=== PATIENT | male | born 1970 | race Caucasian/White ===

== ENCOUNTER 2023-04-27 10:48 | Inpatient (IN) | payer OTHER, SELFPAY ==
[2023-04-27] VITALS (41 sets, daily range): BP systolic 123–193; BP diastolic 67–98; PULSE 72–104; RESP 16–18; TEMP 36.2–36.5; O2SAT 97–100
--- NOTE | ~2023-04-27 | CT_ITS ---
EXAMINATION: CT pelvis w con DATE: 04/27/2023 15:30 INDICATION: Large right necrotizing fasciitis TECHNIQUE: Computed tomography (CT) of the pelvis was performed with 100 cc Omnipaque 350 intravenous contrast. The dose-length product was 990.70 mGy-cm. Automated exposure control and iterative recons truction technique were employed. COMPARISON: No prior studies for comparison. FINDINGS: There is skin thickening and subcutaneous inflammatory changes in the left inguinal crease. There is no skin discontinuity and irregularity with associated gas. Findings compatible with cellul itis. No discrete abscess identified. Nonobstructive bowel gas pattern. No significant vascular abnor mality. Mildly prominent lymph nodes are present in the area of inflammatory changes, likely reactive . IMPRESSION: 1. Abnormal left inguinal skin thickening extending to the inguinal crease with associated skin irreg ularity and gas, compatible with cellulitis, possibly necrotizing. No discrete drainable abscess iden tified. Reviewed, dictated and finalized at location A. IMPRESSION: 1. Abnormal left inguinal skin thickening extending to the inguinal crease with associated skin irregularity and gas, compatible with cellulitis, possibly nec rotizing. No discrete drainable abscess identified.
--- NOTE | 2023-04-27 14:27 | ED.SKABFB ---
HPI - Skin/Abscess/Foreign Bdy General Chief complaint: Skin/Abscess/Foreign Body Stated complaint: celulitis of groin Time Seen by Provider: 04/27/23 13:37 Source: patient Mode of arrival: ambulatory Limitations: no limitations History of Present Illness HPI narrative: 53 years old white male with recent diagnosis of diabetes September 2022 came to the ED with left groin pain and abscess. Started 1-1/2-week ago, was seen by urgent care few days ago started on Keflex, was seen by his family physician today who referred him to the emergency room for further evaluation. History of diabetes, depression, hypertension does not take medicine for blood pressure. He denies any fever, chills, nausea, vomiting. Related Data Allergies Allergy/AdvReac Type Severity Reaction Status Date / Time No Known Allergies Allergy Unknown Verified 04/27/23 13:21 Review of Systems Review of Systems: All systems reviewed & are unremarkable except as noted in HPI and below Exam Narrative: General appearance: Well-developed, well-nourished Skin: Normal color Head: Normocephalic, nontraumatic Eyes: Clear conjunctiva ENT: Oropharynx normal, ears normal, nose normal Neck: Supple, nontender Chest and respiratory: Airway patent, no respiratory distress, no accessory muscle use Heart: Regular rate/rhythm Abdomen: Soft, nontender, no organomegaly, quiet bowel sounds left groin area showing diffuse erythema, thickening of the skin, and opened abscess roughly 7 cm x 5 cm containing purulent discharge with offensive odor Vascular: Normal peripheral pulses, normal capillary refill. 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 Lua [facility] Date: 04/27/23 Time: 17:00 Consultation #2: Dr. Robledo/the surgeon on-call at [facility] No bed available, no waiting list Date: 04/27/23 Time: 17:45 Consultation #3: DR ALVAREZ, the surgeon at [facility] [address] who is telling me that patient LRINEC score is low for necrotizing fasciitis and patient can be managed in our facility with debridement. Date: 04/27/23 Time: 18:11 Vital Signs Vital signs: Vital Signs Temperature 36.5 C 04/27/23 10:56 Pulse Rate 99 04/27/23 10:56 Respiratory Rate 18 04/27/23 10:56 Blood Pressure 176/83 H 04/27/23 10:56 Pulse Oximetry 100 04/27/23 10:56 Oxygen Delivery Room Air 04/27/23 10:56 Temperature 36.5 C 04/27/23 10:56 Pulse Rate 88 04/27/23 18:22 Respiratory Rate 18 04/27/23 18:22 Blood Pressure 180/95 H 04/27/23 18:22 Pulse Oximetry 100 04/27/23 18:22 Oxygen Delivery Room Air 04/27/23 10:56 MDM - Skin/Abscess/Foreign Bdy MDM Narrative Medical decision making narrative: 53 years old white male came to the ED by private car complaining of progression of infection at the left groin area. Physical examination as above Vital signs on arrival showed blood pressure of 176/83. Patient does not take blood pressure medication at home. Differential diagnosis include cellulitis, abscess, necrotizing fasciitis. Blood work-up today showed WBC of 12.0, C-reactive protein 2.9 CT scan of the pelvis showed finding consistent with cellulitis, possibly necrotizing, no discrete drainable abscess identified. Patient received Zosyn and vancomycin IV prior to admission, admitted to hospitalist, discussed with Dr. Lua Differential Diagnosis Differential diagnosis: Likely abscess of skin or subcutaneous tissue, cellulitis and other Medical Records Attestation: I reviewed the patient's medical records. Lab Data Attestation
[2023-04-27] MEDS: SODIUM CHLORIDE 0.9% IV 1,000 ML 999 ML IV CONT (14:39)
[2023-04-27] MEDS: PIPERACILLN/TAZ 3.375GM/NS50ML 3.375 GM/50 ML BAG IVPB ×2 (14:40→21:46)
[2023-04-27 14:47] LABS: Basophils Absolute Auto 0.1 K/mm3 (0.0-0.1); Basophils Percent Auto 0.7 % (0.2-1.2); Eosinophils Absolute Auto 0.1 K/mm3 (0-0.3); Eosinophils Percent Auto 0.8 % (0-4.4); Hematocrit 48.3 % (42.0-52.0); Hemoglobin 16.1 g/dL (14.0-18.0); Immature Granulocyte Absolute 0.14 K/mm3 (0.00-0.031); Immature Granulocyte Percent A 1.2 % (0-0.5); Lymphocytes Absolute Auto 2.49 K/mm3 (0.9-3.2); Lymphocytes Percent Auto 20.7 % (18.3-44.2); Mean Corpuscular HGB Conc 33.3 g/dl (32-36); Mean Corpuscular Hemoglobin 32.5 pg (26-34); Mean Corpuscular Volume 97.6 fl (80-100); Mean Platelet Volume 9.9 fl (7.4-10.4); Monocytes Absolute Auto 0.6 K/mm3 (0.1-0.6); Neutrophils Absolute Auto 8.6 K/mm3 (1.3-6.7); Neutrophils Percent Auto 71.6 % (45.5-73.1); Platelet Count Result 345 k/mm3 (150-375); Red Blood Count 4.95 M/mm3 (4.6-6.20)
[2023-04-27 14:58] LABS: Lactic Acid Reflex 1.2 mmol/L (0.7-2.0)
[2023-04-27 15:00] LABS: Alanine Aminotransferase 28 U/L (6-50); Albumin Level 4.2 g/dL (3.5-5.1); Alkaline Phosphatase 112 U/L (38-126); Anion Gap 10 mmol/L (8-16); Aspartate Amino Transferase 26 U/L (17-59); Bilirubin,Total 0.4 mg/dL (0.2-1.3); Blood Urea Nitrogen 7 mg/dL (9-20); CRP 2.9 mg/dL (<1.0); Calcium 9.7 mg/dL (8.4-10.2); Carbon Dioxide 22 mmol/L (22-30); Chloride 104 mmol/L (98-107); Estimated CRCL calculation 150 ml/min; Estimated Glomerular Filt Rate > 60; Glucose 121 mg/dL (65-110); Potassium 3.6 mmol/L (3.4-5.0); Sodium 136 mmol/L (137-145)
[2023-04-27] MEDS: VANCOMYCIN 1,250 MG/NS 250 ML 1,250 MG/250 ML BAG 166.67 MG IVPB (16:38)
--- NOTE | 2023-04-27 18:00 | PC.NURSE ---
Initial transfer call placed to [facility] transfer ([facility]), transfer center returned call at 1739, then [facility] transfer canceled per MD Miranda. Next transfer call placed at 1747 to [facility] transfer center ([facility]). Provider Dr. Mays from [place] consulted with Dr. Miranda at 1802. Waiting for Dr. Miranda to give further orders.
[2023-04-27] MEDS: VANCOMYCIN 1,000 MG/NS 250 ML 1,000 MG/250 ML BAG 250 MG IVPB (18:21)
--- NOTE | 2023-04-27 18:57 | PC.NURSE ---
Transfer to [place] canceled per MD Miranda @ [phone], No more [facility], patient is staying here.
--- NOTE | 2023-04-27 21:37 | PM.IMHP ---
H&P: HPI History of Present Illness Date/Time: 04/27/23 21:37 Chief Complaint: Painful draining wound left groin Narrative: 53-year-old male with a past medical medical history depression, anxiety, obese and recent diagnosis of diabetes (09/2022) who presented to the ER with a wound in his left groin. The patient reports that approximately 10 days ago he had a small pimple in his groin just medial to his thigh crease. He popped the pimple. The next day he developed is erythema and significant swelling. After several days the symptoms he went to urgent care. He reported when he went to urgent care the area was hot swollen and extremely painful to touch. He was given a prescription for Keflex and tramadol. He took the Keflex as directed. He was also using Aleve as needed for pain. He did not have any fevers or chills. He reports the day after he went to urgent care the area popped in started draining a black foul-smelling material (approximately 5 days ago). He reports that the pain in the area did improve after it started draining but the tissue is continued to break apart and he has had continued significant amount of foul-smelling drainage since that time. He still has not had any fevers. He reports that the pain is a 68/10 in intensity with palpation or movement. He has not had any difficulty starting or stopping urinary stream, dysuria or hematuria. He has been having normal bowel movements. He denies history of frequent infections. He reports that he route was diagnosed with diabetes in approximately September and that his A1c was above 7 but he does not recall take exact number. He does occasionally have some burning-type numbness in his toes. He does not have a known diagnosis of diabetic neuropathy. He is overdue for his diabetic eye exam. He denies any recent vision changes. He he has chronic see renal rhinitis. He does have some current postnasal drip. He has not had any nausea or vomiting. In the ER the patient had CT performed which demonstrated thickening of the skin extending into the inguinal crease with cellulitis. The read was read as possible necrotizing fasciitis at the wrist air present but the patient's wound is unroofed with necrotic skin at the edges. He reports that he does not think that the wound is been rapidly enlarging. He he states that he can not really see the wound due to his pannus. Review of Systems Review of Systems: 12 systems were reviewed with pertinent positives and negatives per HPI. Except as documented in the HPI, all other systems were reviewed and are negative. The patient does snore. His weight is been stable. He has been having some daytime fatigue but thinks that this is due to recent change in his schedule. [facility] Past Medical History Medical History (Updated 04/28/23 @ 01:39 by Olga Jama DO) Anxiety and depression Current smoker Diabetic neuropathy Heavy alcohol consumption Obesity (BMI 30.0-34.9) Type 2 diabetes mellitus (09/2022) Surgical History Surgical History (Updated 04/28/23 @ 01:15 by Olga Jama DO) History of arthroscopy of left knee History of ventral hernia repair Patient reported right lateral abdomen. Family History Family History (Updated 04/28/23 @ 01:24 by Olga Jama DO) Father Diabetes mellitus Age greater than 75 years Mother Diabetes mellitus The patient had not had any medical care for 40 years and was found to have uncontrolled diabetes and of sepsis Gangrene Social History Social History (Updated 04/28/23 @ 01:30 by Olga Jama DO) Social History: He is and lives alone. He has a Yorkie. He has a daughter who is 20. He has smoked a pack of cigarettes per day since the age of 20. He drinks 3-4 beers a day every day. He also does drink alcohol heavy year on a somewhat frequent basis. He denies any illicit substance use. 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 Code statu
--- NOTE | 2023-04-27 22:55 | ADMGEN ---
This patient, Fernando Polanco, was admitted to [facility] Surg Room 320-01. Patient/family oriented to hospital policies and general routines including ID bracelet, bed and alarms, visiting hours, pain management, procedures, bathroom and other care routines, personal items, smoking policy, room service/diet, and visiting hours. Information on how to activate the Rapid Response Team has been discussed. Patient/Family are encouraged to report perceived risks to care and to ask questions if they do not understand what they are told or what they should do.
[2023-04-28] VITALS (11 sets, daily range): BP systolic 126–174; BP diastolic 71–84; PULSE 59–81; RESP 14–20; TEMP 36–36.4; O2SAT 94–100
[2023-04-28] MEDS: SODIUM CHLORIDE 0.9% IV 1,000 ML 125 ML IV CONT (00:15)
[2023-04-28] MEDS: HYDROcodone/acetaminophen (*CRX) 5-325 MG TABLET 1 TAB PO ×2 (00:15→17:38)
[2023-04-28 00:59] LABS: Glucose Point of Care 95 mg/dl (65-105)
[2023-04-28] MEDS: PIPERACILLN/TAZ 3.375GM/NS50ML 3.375 GM/50 ML BAG IVPB ×4 (03:19→22:57)
[2023-04-28] MEDS: HYDROmorphone HCL INJ (*CRX) 1 MG/ML SYR 0.5 MG IV PUSH ×2 (03:30→20:50)
[2023-04-28 06:31] LABS: Glucose Point of Care 158 mg/dl (65-105)
[2023-04-28 06:35] LABS: Basophils Absolute Auto 0.1 K/mm3 (0.0-0.1); Basophils Percent Auto 0.6 % (0.2-1.2); Eosinophils Absolute Auto 0.2 K/mm3 (0-0.3); Eosinophils Percent Auto 2.4 % (0-4.4); Hematocrit 43.8 % (42.0-52.0); Hemoglobin 14.5 g/dL (14.0-18.0); Immature Granulocyte Absolute 0.09 K/mm3 (0.00-0.031); Immature Granulocyte Percent A 0.9 % (0-0.5); Lymphocytes Absolute Auto 2.63 K/mm3 (0.9-3.2); Lymphocytes Percent Auto 26.5 % (18.3-44.2); Mean Corpuscular HGB Conc 33.1 g/dl (32-36); Mean Corpuscular Volume 99.8 fl (80-100); Mean Platelet Volume 9.9 fl (7.4-10.4); Monocytes Absolute Auto 0.8 K/mm3 (0.1-0.6); Monocytes Percent Auto 7.8 % (2.6-8.5); Neutrophils Absolute Auto 6.1 K/mm3 (1.3-6.7); Neutrophils Percent Auto 61.8 % (45.5-73.1); Platelet Count Result 315 k/mm3 (150-375); Red Blood Count 4.39 M/mm3 (4.6-6.20); Red Cell Distribution Width 13.1 % (11.5-14.5); White Blood Count 9.9 K/mm3 (4.5-10.0)
[2023-04-28 06:47] LABS: Anion Gap 7 mmol/L (8-16); Blood Urea Nitrogen 9 mg/dL (9-20); Calcium 8.9 mg/dL (8.4-10.2); Carbon Dioxide 22 mmol/L (22-30); Chloride 104 mmol/L (98-107); Estimated CRCL calculation 128 ml/min; Estimated Glomerular Filt Rate > 60; Glucose 144 mg/dL (65-110); Potassium 3.5 mmol/L (3.4-5.0); Sodium 133 mmol/L (137-145)
--- NOTE | 2023-04-28 11:05 | ECG_ITS ---
Measurements Intervals [place] Rate: 68 P: 7 MS: 184 QRS: 88 QRSD: 90 T: 48 QT: 429 QTc: 456 Interpretive Statements SINUS RHYTHM BASELINE ARTIFACT- I, II, III, AVR, AVL NORMAL ECG NO PREVIOUS ECG AVAILABLE FOR COMPARISON Electronically Signed On 04-28-2023 13:07:25 CDT by Christian Serna D.O.
--- NOTE | 2023-04-28 11:10 | PM.CNGS ---
Assessment and Plan Assessment and plan (1) Abscess of left groin: Code(s): L02.214 - Cutaneous abscess of groin Status: Acute Assessment and Plan: Patient with draining left groin abscess and large open wound with necrotic tissue. We would recommend to proceed with debridement and incision and drainage of left groin abscess by Dr. Lua today. Description of the procedure, risks, benefits, alternatives, and expected post-op wound care were discussed with the patient in detail. All questions answered and he agrees to proceed. Will keep NPO and continue IV antibiotics. 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 Discussed the importance of glycemic control in this setting and for longer term wound care. (3) Current smoker: Code(s): F17.200 - Nicotine dependence, unspecified, uncomplicated Status: Acute Assessment and Plan: Encouraged cessation. (4) Cellulitis: Qualifiers: Site of cellulitis: other site Qualified Code(s): L03.818 - Cellulitis of other sites Code(s): L03.90 - Cellulitis, unspecified Status: Acute Plan I have discussed the patient's case and plan of care with Dr. Lua. Thank you for allowing us to see the patient in consultation and we will continue to follow along with you. History of Present Illness Consult details Consult date: 04/28/23 Reason for consult: other (Left groin cellulitis ) Requesting physician: Katya Miranda MD Narrative: This is a 53-year-old man who was directed to the ER by his PCP yesterday for evaluation of left groin abscess. He reports noticing a pimple between his left thigh and scrotum about 1.5 weeks ago. He tried popping the pimple and over the next few days noticed warmth, swelling, and pain to the left groin. He went to [facility] in [place] last and was given an IM dose of an antibiotic and sent home with cephalexin. He woke up Wednesday and noticed that the skin over the area of swelling looked black and started draining copious amounts of purulent foul-smelling drainage. He continued taking the antibiotics and was using a pad to catch all the drainage. Some of the swelling and pain improved through the weekend as it drained. He followed up with his PCP yesterday and directed to the ER. Labs showed a WBC count of 12,[address] pelvis showed abnormal left inguinal skin thickening extending to the inguinal crease with associated skin irregularity and marie compatible with cellulitis, possibly necrotizing. He was admitted and our service consulted for the left groin abscess and cellulitis. He is now seen on the medical floor. Review of Systems Review of Systems: All systems reviewed & are unremarkable except as noted in HPI and below PMFSH Past Medical History Medical History Anxiety and depression Current smoker Diabetic neuropathy Heavy alcohol consumption Obesity (BMI 30.0-34.9) Type 2 diabetes mellitus (09/2022) Surgical History Surgical History History of arthroscopy of left knee History of ventral hernia repair Patient reported right lateral abdomen. Family History Family History Father Diabetes mellitus Age greater than 75 years Mother Diabetes mellitus The patient had not had any medical care for 40 years and was found to have uncontrolled d
--- NOTE | 2023-04-28 11:11 | WPDHPUPDATE1 ---
History and Physical Update Update Date/Time: 04/28/23 11:11 History and Physical has been reviewed, including an updated exam of the patient. There are NO changes in the patient's condition. Risks, benefits, and alternatives have been discussed and questions answered. Patient agrees to proceed with procedure.
[2023-04-28 12:12] LABS: Glucose Point of Care 120 mg/dl (65-105)
--- NOTE | 2023-04-28 12:31 | WPDANESEPPF ---
Anes - Initial Pre Proc Eval Procedure: Operation Date: 04/28/23 13:00 Proposed Procedures p Incision and Debridement Left Groin Abscess - Sean Lua DO Date/Time: 04/28/23 12:31 Surgeon: Tyrone Aguirre MD Pre Op Diagnosis: Left Groin Cellulitis Patient Data Age: 53 Gender: M Height: 1.68 m Weight: 93 kg Last Vital Signs Temp 36.3 C L 04/28/23 12:30 Pulse 68 04/28/23 12:30 Resp 18 04/28/23 12:30 BP 162/75 H 04/28/23 12:30 Pulse Ox 98 04/28/23 12:30 O2 Del Method Room Air 04/28/23 12:30 Allergies Allergy/AdvReac Type Severity Reaction Status Date / Time No Known Allergies Allergy Unknown Verified 04/28/23 12:28 Home Medications Medication Instructions Recorded Confirmed Type cephalexin 500 mg capsule 500 mg PO Q6H 04/27/23 04/27/23 History dapagliflozin propanediol 5 mg 5 mg PO DAILY 04/27/23 04/28/23 History tablet (Farxiga) escitalopram oxalate 10 mg tablet 10 mg PO DAILY 04/27/23 04/28/23 History metformin 500 mg tablet 500 mg BID 04/27/23 04/27/23 History Laboratory Tests 04/27/23 04/28/23 04/28/23 14:34 00:57 06:21 WBC 12.0 H K/mm3 9.9 K/mm3 (4.5-10.0) (4.5-10.0) RBC 4.95 M/mm3 4.39 L M/mm3 (4.6-6.20) (4.6-6.20) Hgb 16.1 g/dL 14.5 g/dL (14.0-18.0) (14.0-18.0) Hct 48.3 % 43.8 % (42.0-52.0) (42.0-52.0) MCV 97.6 fl 99.8 fl (80-100) (80-100) MCH 32.5 pg 33.0 pg (26-34) (26-34) MCHC 33.3 g/dl 33.1 g/dl (32-36) (32-36) RDW 13.0 % 13.1 % (11.5-14.5) (11.5-14.5) Plt Count 345 k/mm3 315 k/mm3 (150-375) (150-375) MPV 9.9 fl 9.9 fl (7.4-10.4) (7.4-10.4) Immature Gran % (Auto) 1.2 H % 0.9 H % (0-0.5) (0-0.5) Neut % (Auto) 71.6 % 61.8 % (45.5-73.1) (45.5-73.1) Lymph % (Auto) 20.7 % 26.5 % (18.3-44.2) (18.3-44.2) Hayes % (Auto) 5.0 % 7.8 % (2.6-8.5) (2.6-8.5) Eos % (Auto) 0.8 % 2.4 % (0-4.4) (0-4.4) Baso % (Auto) 0.7 % 0.6 % (0.2-1.2) (0.2-1.2) Lymph # (Auto) 2.49 K/mm3 2.63 K/mm3 (0.9-3.2) (0.9-3.2) Hayes # (Auto) 0.6 K/mm3 0.8 H K/mm3 (0.1-0.6) (0.1-0.6) Eos # (Auto) 0.1 K/mm3 0.2 K/mm3 (0-0.3) (0-0.3) Baso # (Auto) 0.1 K/mm3 0.1 K/mm3 (0.0-0.1) (0.0-0.1) Abs Immat Gran (auto) 0.14 H K/mm3 0.09 H K/mm3 (0.00-0.031) (0.00-0.031) Absolute Neuts (auto) 8.6 H K/mm3 6.1 K/mm3 (1.3-6.7) (1.3-6.7) Absolute Nucleated RBC 0.0 K/mm3 0.0 K/mm3 (0.0-0.012) (0.0-0.012) Nucleated RBC % 0.0 % 0.0 % (0.0-0.2) (0.0-0.2) Sodium 136 L mmol/L 133 L mmol/L (137-145) (137-145) Potassium 3.6 mmol/L 3.5 mmol/L (3.4-5.0) (3.4-5.0) Chloride 104 mmol/L 104 mmol/L (98-107) (98-107) Carbon Dioxide 22 mmol/L 22 mmol/L (22-30) (22-30) Anion Gap 10 mmol/L 7 L mmol/L (8-16) (8-16) BUN 7 L mg/dL 9 mg/dL (9-20) (9-20) Creatinine 0.50 L mg/dL 0.60 L mg/dL (0.7-1.3) (0.7-1.3) Estim Creat Clear Calc 150 ml/min 128 ml/min Estimated GFR > 60 > 60 (59 - ) (59 - ) Glucose 121 H mg/dL 144 H mg/dL (65-110) (65-110) POC Capillary Glucose 95 mg/dl (65-105) Lactic Acid 1.2 mmol/L (0.7-2.0) Calcium 9.7 mg/dL 8.9 mg/dL (8.4-10.2) (8.4-10.2) Total Bilirubin 0.4 mg/dL (0.2-1.3) AST 26 U/L (17-59) ALT 28 U/L (6-50) Alkaline Phosphatase 112 U/L (38-126) C-Reactive Protein 2.9 H mg/dL (<1.0) Total Protein 8.0 g/dL (6.3-8.2) Albumin 4.2 g/dL (3.5-5.1) 04/28/23 04/28/23 06:27 12:08 WBC RBC Hgb Hct MCV MCH MCHC RDW Plt Count MPV Immature Gran % (Auto) Neut % (Auto) Lymph % (Auto) Hayes
[2023-04-28] MEDS: KETOROLAC 15 MG/ML VIAL (*BKC) IV PUSH (13:38)
[2023-04-28] MEDS: LACTATED RINGERS 1,000 ML 30 ML IV CONT (13:45)
--- NOTE | 2023-04-28 13:47 | W.PM.PROC2 ---
Procedure Note - Detailed Date of Procedure 04/28/23 Pre-op Diagnosis Left groin open wound with necrosis and abscess Post-op Diagnosis Same Procedure Performed complex incision and drainage left groin open wound with necrosis and abscess, wound measuring 7.5 x 5 cm, posterior tunneling of 7 cm, lateral tunneling 5.5 cm Surgeon Rosalind Zamora MD Anesthesia General and Local Indications 53-year-old male presenting with a infected open left groin wound and necrosis Findings left groin open necrotic wound with tunneling and abscess Description of Procedure The patient was taken operating room and placed in the supine position. After adequate induction of general anesthesia, the patient was prepped and draped in the normal sterile fashion. A time-out was then done to verify the patient's identity, as well as the procedure being performed. There was a large area of necrotic tissue overlying the open wound and this was debrided with a scalpel. This encompassed the overlying dermis and the superficial layer of subcutaneous tissue. Once debrided off, there was noted to be indurated subcutaneous tissue underneath. The area was very indurated, there was no active signs of infection. The wound measured 7 0.5 x 5 cm. In the most lateral area of the wound there was a tunnel going laterally approximately 5.5 cm. Once this area was opened up, there was noted to be a pocket of purulent material that was drained. Further examination, led to a another tunnel in the posterior lateral part of the wound that tunneled posteriorly 8 cm. Again once completely open, a pocket of purulent drainage was drained. No other tunneling or pockets were found. I then copiously irrigated the wound and hemostasis was obtained with the Bovie cautery. The infection and wound seemed to be all contained within the subcutaneous tissue and dermis with no evidence of intramuscular extension. I then packed both tunnels with half-inch iodoform packing. Sterile dressing was then placed on the wound. The patient tolerated the procedure well and was extubated postoperatively. He will be sent to the recovery room in stable condition. Estimated Blood Loss 5 Packing Yes Pathology None sent Complications No immediate complications Condition Stable Disposition PACU [facility] Billing Surgery - Charge Forward: Surgery Billing
[2023-04-28] MEDS: fentaNYL CITRATE INJ (*CRX) 100 MCG/2 ML VIAL 25 MCG IV PUSH ×3 (13:59→14:17)
[2023-04-28 14:04] LABS: Glucose Point of Care 118 mg/dl (65-105)
--- NOTE | 2023-04-28 20:41 | PM.IMPN ---
Progress Note: A&P Assessment and Plan (1) Abscess of left groin: Code(s): L02.214 - Cutaneous abscess of groin Status: Acute (2) Elevated blood pressure reading: Code(s): R03.0 - Elevated blood-pressure reading, without diagnosis of hypertension Status: Acute (3) Heavy alcohol consumption: Code(s): F10.90 - Alcohol use, unspecified, uncomplicated Status: Acute (4) Current smoker: Code(s): F17.200 - Nicotine dependence, unspecified, uncomplicated Status: Acute (5) Diabetic neuropathy: Qualifiers: Diabetes mellitus type: type 2 Diabetes mellitus complication detail: diabetic polyneuropathy Qualified Code(s): E11.42 - Type 2 diabetes mellitus with diabetic polyneuropathy Code(s): E11.40 - Type 2 diabetes mellitus with diabetic neuropathy, unspecified Status: Acute (6) Snoring: Code(s): R06.83 - Snoring Status: Acute (7) Wet gangrene: Code(s): I96 - Gangrene, not elsewhere classified Status: Acute (8) Type 2 diabetes mellitus: Onset Date: 09/2022 Qualifiers: Diabetes mellitus 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 Lua, see post op note for extensive details of debriding vanc/zosyn/clindamycin added Will discuss with surgeon re: length of time of abx, time for de-escalation, time of hospitalization post op f/u labs for tomorrow 2. DM ISS f/u a1c 3. Pre-HTN/HTN start amlodipine 5mg/day if needed 4. Heavy intermittent etoh use f/u for signs of withdrawal. pt has never had any in the past. 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 See operative note from gen. surgery Review of Systems Review of Systems: abd pressure near surgical site. no bm yet. passing gas. Exam Narrative: Const:?? General: comfortab le, no acute distr ess and awake? Nut ritional Appearanc e: overweight? Levi entation/conscious ness: patient elias nted x3 HENMT:?? Head: normocephali c and atraumatic? Ears: hearing bryan sly normal bilater ally Eyes:?? General: appearanc e normal, both eye s and all related structures? Pupils : Equal, round and reactive pupils p resent Neck:?? Neck: normal visua l inspection and f ull ROM Resp:?? Effort & Inspectio n: no respiratory distress? Ausculta tion: clear to aus cultation bilatera lly Cardio:?? Rate: regular rate ? Rhythm: regular rhythm? Heart soun ds: S1 normal hear t sound present an d S2 normal heart sound present? Per ipheral pulses: Pe ripheral pulses 2+ throughout GI:?? Inspection: non-di stended? GI Palp: Yes Soft to palpat ion,
[2023-04-28 21:12] LABS: Glucose Point of Care 191 mg/dl (65-105)
[2023-04-28] MEDS: CLINDAMYCIN 600 MG/D5W 50 ML 600 MG/50 ML PIGGYBACK 100 MG IVPB (22:13)
[2023-04-29] MEDS: HYDROmorphone HCL INJ (*CRX) 1 MG/ML SYR 0.5 MG IV PUSH ×8 (00:59→23:05)
[2023-04-29 01:00] VITALS: BP 140/60; PULSE 61; RESP 18; TEMP 35.7; O2SAT 98
[2023-04-29] MEDS: PIPERACILLN/TAZ 3.375GM/NS50ML 3.375 GM/50 ML BAG IVPB ×4 (03:13→21:09)
[2023-04-29] MEDS: SODIUM CHLORIDE 0.9% IV 1,000 ML 100 ML IV CONT (03:16)
[2023-04-29 04:34] LABS: Basophils Absolute Auto 0.1 K/mm3 (0.0-0.1); Basophils Percent Auto 0.7 % (0.2-1.2); Eosinophils Absolute Auto 0.2 K/mm3 (0-0.3); Hematocrit 44.9 % (42.0-52.0); Hemoglobin 14.6 g/dL (14.0-18.0); Immature Granulocyte Percent A 0.8 % (0-0.5); Lymphocytes Absolute Auto 2.26 K/mm3 (0.9-3.2); Lymphocytes Percent Auto 18.4 % (18.3-44.2); Mean Corpuscular HGB Conc 32.5 g/dl (32-36); Mean Corpuscular Hemoglobin 32.7 pg (26-34); Mean Corpuscular Volume 100.4 fl (80-100); Mean Platelet Volume 9.9 fl (7.4-10.4); Monocytes Percent Auto 7.9 % (2.6-8.5); Neutrophils Absolute Auto 8.6 K/mm3 (1.3-6.7); Neutrophils Percent Auto 70.2 % (45.5-73.1); Platelet Count Result 302 k/mm3 (150-375); Red Blood Count 4.47 M/mm3 (4.6-6.20); White Blood Count 12.3 K/mm3 (4.5-10.0)
[2023-04-29 04:57] LABS: Vancomycin Trough 13.1 ug/mL (10.0-20.0)
[2023-04-29 05:00] VITALS: BP 168/90; PULSE 74; RESP 18; TEMP 35.9; O2SAT 99
[2023-04-29 05:00] LABS: Anion Gap 5 mmol/L (8-16); Blood Urea Nitrogen 7 mg/dL (9-20); Calcium 9.1 mg/dL (8.4-10.2); Carbon Dioxide 24 mmol/L (22-30); Chloride 108 mmol/L (98-107); Estimated CRCL calculation 98 ml/min; Estimated Glomerular Filt Rate > 60; Glucose 115 mg/dL (65-110); Magnesium 2.2 mg/dL (1.6-2.3); Potassium 3.6 mmol/L (3.4-5.0); Sodium 137 mmol/L (137-145)
[2023-04-29 05:06] LABS: Hemoglobin A1C 6.9 % (<5.7)
[2023-04-29] MEDS: CLINDAMYCIN 600 MG/D5W 50 ML 600 MG/50 ML PIGGYBACK 100 MG IVPB ×3 (05:08→21:09)
[2023-04-29 07:57] LABS: Glucose Point of Care 190 mg/dl (65-105)
[2023-04-29 11:54] LABS: Glucose Point of Care 154 mg/dl (65-105)
--- NOTE | 2023-04-29 14:15 | WPDANESPN ---
Anes - Prog Note Post-Op Date/Time: 04/29/23 14:15 Vital Signs: Last Vital Signs Temp 35.9 C L 04/29/23 05:00 Pulse 74 04/29/23 05:00 Resp 18 04/29/23 05:00 BP 168/90 H 04/29/23 05:00 Pulse Ox 99 04/29/23 05:00 O2 Del Method Room Air 04/28/23 14:30 O2 Flow Rate 8 04/28/23 13:45 Pain Score (VAS): 0 I/O: Intake & Output 04/28/23 04/29/23 04/29/23 23:59 07:59 15:59 Intake Total 836 350 790 Balance 836 350 790 Laboratory Tests 04/29/23 04:28 04/29/23 04:28 04/28/23 04/29/23 04/29/23 20:37 04:28 07:50 WBC 12.3 H RBC 4.47 L Hgb 14.6 Hct 44.9 MCV 100.4 H MCH 32.7 MCHC 32.5 RDW 13.0 Plt Count 302 MPV 9.9 Immature Gran % (Auto) 0.8 H Neut % (Auto) 70.2 Lymph % (Auto) 18.4 [place] % (Auto) 7.9 Eos % (Auto) 2.0 Baso % (Auto) 0.7 Lymph # (Auto) 2.26 [place] # (Auto) 1.0 H Eos # (Auto) 0.2 Baso # (Auto) 0.1 Abs Immat Gran (auto) 0.10 H Absolute Neuts (auto) 8.6 H Absolute Nucleated RBC 0.0 Nucleated RBC % 0.0 Sodium 137 Potassium 3.6 Chloride 108 H Carbon Dioxide 24 Anion Gap 5 L BUN 7 L Creatinine 0.80 Estim Creat Clear Calc 98 Estimated GFR > 60 Glucose 115 H POC Capillary Glucose 191 H 190 H Hemoglobin A1c 6.9 H Calcium 9.1 Magnesium 2.2 Vancomycin Trough 13.1 04/29/23 11:45 WBC RBC Hgb Hct MCV MCH MCHC RDW Plt Count MPV Immature Gran % (Auto) Neut % (Auto) Lymph % (Auto) [place] % (Auto) Eos % (Auto) Baso % (Auto) Lymph # (Auto) [place] # (Auto) Eos # (Auto) Baso # (Auto) Abs Immat Gran (auto) Absolute Neuts (auto) Absolute Nucleated RBC Nucleated RBC % Sodium Potassium Chloride Carbon Dioxide Anion Gap BUN Creatinine Estim Creat Clear Calc Estimated GFR Glucose POC Capillary Glucose 154 H Hemoglobin A1c Calcium Magnesium Vancomycin Trough Microbiology 04/27/23 14:34 Blood Blood Culture - Preliminary 04/27/23 14:34 Blood Blood Culture - Preliminary Patient Feedback: Patient satisfied with anesthetic care.
--- NOTE | 2023-04-29 14:51 | PM.PNGS ---
Progress Note: A&P Assessment and Plan (1) Abscess of left groin: Code(s): L02.214 - Cutaneous abscess of groin Status: Acute Assessment and Plan: S/p I&D left groin abscess yesterday. Abscess appears adequately drained. Wound care nurses consulted. Will initiate silver rope packing for his dressing changes, which can be done every 3 days. Since he lives at home alone and cannot do his wound care independently, this will allow him to eventually go home with home health coming to change his dressings three times per week. CC will work on setting up home health. Continue IV antibiotics today. He still required IV pain medication for his dressing change today as well. Will reassess again tomorrow. (2) Cellulitis: Qualifiers: Site of cellulitis: other site Qualified Code(s): L03.818 - Cellulitis of other sites Code(s): L03.90 - Cellulitis, unspecified Status: Acute Assessment and Plan: Continue IV antibiotics. Plan I have discussed the patient's case and plan of care with Dr. Zamora. Subjective Subjective Date/Time Seen: 04/29/23 12:51 Patient reports: no new complaints, feels better (Left groin pain is less than preop), tolerating a regular diet and afebrile Interval history: Patient seen today and feeling well. Reports some of the pain is better than it was prior to surgery in his left groin. Dressing still in place. I have asked wound care to come evaluate the patient with me for his dressing change, and they were at the bedside as well during my exam. Exam Narrative: Left groin gauze dressing and packing removed. There is a large open wound to the left groin where the visible part of the wound bed appears pink and healthy with no visible necrotic tissue. Scant purulent drainage coming from the tunnelled area posteriorly. There are two areas of tunneling with the shorter segment tunnelling laterally and a deeper posterior tunnel. No residual fluid collections or fluctuant areas. Will pack with silver rope and cover with gauze. Const: General: no acute distress Orientation/consciousness: patient oriented x3 Objective Data Vital Signs Vital Signs: Vital Signs - 24 hr 04/28/23 16:00 04/28/23 15:45 04/28/23 16:00 Temperature 97.2 F L 97.2 F L Pulse Rate 59 L 73 Respiratory Rate 16 16 Blood Pressure 144/77 H 148/76 H 154/72 H Pulse Oximetry 100 98 04/28/23 16:30 04/28/23 17:30 04/28/23 20:35 Temperature 96.8 F L 97.0 F L 96.8 F L Pulse Rate 77 81 78 Respiratory Rate 16 16 18 Blood Pressure 172/83 H 152/71 H 147/80 H Pulse Oximetry 99 100 100 04/29/23 01:00 04/29/23 05:00 Temperature 96.3 F L 96.6 F L Pulse Rate 61 74 Respiratory Rate 18 18 Blood Pressure 140/60 168/90 H Pulse Oximetry 98 99 Intake/Output Intake/Output: Intake & Output 04/26/23 04/27/23 04/28/23 04/29/23 23:59 23:59 23:59 23:59 Intake Total 1600 2686 1140 Balance 1600 2686 1140 Meds/Results Medications: Active Medications Generic Name Dose Route Start Last Admin Trade Name Freq PRN Reason Stop Dose Admin Acetaminophen 650 mg 04/27/23 18:52 Acetaminophen 325 Mg Tablet PO Q4H PRN Mild Pain (1-3) or Fever Hydrocodone Bitart/Acetaminophen 1 tab 04/27/23 23:56 04/28/23 17:38 Hydrocodone/Acetaminophen (*Crx) 5-325 Mg Tablet PO 1 tab Q6H PRN Administration Pain Rated 4-6 Dextrose 12.5 gm 04/27/23 21:36 Dextrose 50% 25 Gm/50 Ml Syringe IV PUSH PRN PRN Hypoglycemia Protocol Glucagon 1 mg 04/27/23 21:36 Glucagon For Inj 1 Mg Vial IM PRN PRN Hypoglycemia Protocol Glucose 15 gm 04/27/23 21:36 Glucose Oral Gel 15 Gm Of Glucse In 37.5 Gm Tube PO PRN PRN Hypoglycemia Protocol Hydromorphone HCl 0.5 mg 04/29/23 12:40 04/29/23 12:49 Hydromorphone Hcl Inj (*Crx) 1 Mg/Ml Syr IV PUSH 0.5 mg Q2H PRN Administration Pain Rated 7-10 Piperacillin/Tazobactam/Dextrose
[2023-04-29 15:51] VITALS: O2SAT 98
[2023-04-29 16:52] LABS: Glucose Point of Care 125 mg/dl (65-105)
--- NOTE | 2023-04-29 17:16 | PM.IMPN ---
Progress Note: A&P Assessment and Plan (1) Abscess of left groin: Code(s): L02.214 - Cutaneous abscess of groin Status: Acute (2) Elevated blood pressure reading: Code(s): R03.0 - Elevated blood-pressure reading, without diagnosis of hypertension Status: Acute (3) Heavy alcohol consumption: Code(s): F10.90 - Alcohol use, unspecified, uncomplicated Status: Acute (4) Hypertension: Code(s): I10 - Essential (primary) hypertension Status: Acute Plan 1. 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 Lua, see post op note for extensive details of debriding vanc/zosyn/clindamycin added Will discuss with surgeon re: length of time of abx, time for de-escalation, time of hospitalization post op f/u labs for tomorrow 04/29: post op day 1 Procedure Performed ?complex incision and drainage left groin open wound with necrosis and abscess, wound measuring 7.5 x 5 cm, posterior tunneling of 7 cm, lateral tunneling 5.5 cm Surgeon Rosalind Zamora MD Pt still has a wbc count to 12.3. ct bsa with iv vanc/zosyn/clindamycin. Discuss with general surgery/pharmacy re: de-escalation stop IVF, pt eating F/u wound care notes from [facility] general surgery Ct pain control inpatient. 2. DM ISS f/u a1c 04/29: A1c 6.9. on ISS. on metformin 500 mg bid at home. May need more, as his a1c is 6.9 3. Pre-HTN/HTN start amlodipine 5mg/day if needed 04/29: will start amlodipine 5 mg qd 4. Heavy intermittent etoh use f/u for signs of withdrawal. pt has never had any in the past. binge drinker Smoking cessation discussed with admitting card fixer Time Spent With Patient Time: 30 min Subjective Date/time seen: 04/29/23 17:16 Interval history: still has issues with pain. tolerating po diet. wound is c/d/i under gauze. issues with wound care elucidated in gen. surg. progress note. Review of Systems Review of Systems: no additional Exam Narrative: General appearance: Well-developed, well-nourished Skin: Normal color Head: Normocephalic, nontraumatic Eyes: Clear conjunctiva ENT: Oropharynx normal, ears normal, nose normal Neck: Supple, nontender Chest and respiratory: Airway patent, no respiratory distress, no accessory muscle use Heart: Regular rate/rhythm Abdomen: Soft, nontender, no organomegaly, quiet bowel sounds left groin area showing diffuse erythema, thickening of the skin, and opened abscess roughly 7 cm x 5 cm containing purulent discharge with offensive odor Vascular: Normal peripheral pulses, normal capillary refill. 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, no gross motor deficit Objective Data Vital Signs Vital Signs: Vital Signs - 24 hr 04/28/23 17:30 04/28/23 20:35 04/29/23 01:00 Temperature 97.0 F L 96.8 F L 96.3 F L Pulse Rate 81 78 61 Respiratory Rate 16 18 18 Blood Pressure 152/71 H 147/80 H 140/60 Pulse Oximetry 100 100 98 Oxygen Delivery 04/29/23 05:00 04/29/23 15:51 Temperature 96.6 F L Pulse Rate 74 Respiratory Rate 18 Blood Pressure 168/90 H Pulse Oximetry 99 98 Oxygen Delivery Room Air Intake/Output Intake/Output: Intake & Output 04/26/23 04/27/23 04/28/23 04/29/23 23:59 23:59 23:59 23:59 Intake Total 1600 2686 2168 Balance 1600 2686 2168 Meds/Results Medications: Active Medications Generic Name Dose Route Start Last Admin Trade Name Freq PRN Reason Stop Dose Admin Acetaminophen 650 mg 04/27/23 18:52 Acetaminophen 325 Mg Tablet PO Q4H PRN Mild Pain (1-3) or Fever Hydrocodone Bitart/Acetaminophen 1 tab 04/27/23 23:56 04/28/23 17:38 Hydrocodone/Acetaminophen (*Crx) 5-325 Mg Tablet PO 1 tab Q6H PRN Administration Pain Rated 4-6 Amlodipine Besylate 5 mg 04/29/23 17:05 Amlodipine Besylate 5 Mg Tablet PO QAM [facility] Dextrose 12.5 gm 04/27/23 21:36 Dextrose 50% 25 Gm/50 Ml Syringe IV PUSH
[2023-04-29] MEDS: amLODIPine BESYLATE 5 MG TABLET PO (17:21)
[2023-04-29 18:47] VITALS: BP 162/85; PULSE 79; RESP 16; TEMP 36.2; O2SAT 98
[2023-04-29 20:45] VITALS: BP 161/77; PULSE 94; RESP 18; TEMP 35.8; O2SAT 98
[2023-04-29 21:06] LABS: Glucose Point of Care 160 mg/dl (65-105)
[2023-04-30] MEDS: HYDROmorphone HCL INJ (*CRX) 1 MG/ML SYR 0.5 MG IV PUSH ×9 (01:28→20:07)
[2023-04-30] MEDS: PIPERACILLN/TAZ 3.375GM/NS50ML 3.375 GM/50 ML BAG IVPB ×2 (03:35→08:19)
[2023-04-30 05:00] VITALS: BP 150/82; PULSE 87; RESP 16; TEMP 36.1; O2SAT 99
[2023-04-30] MEDS: CLINDAMYCIN 600 MG/D5W 50 ML 600 MG/50 ML PIGGYBACK 100 MG IVPB ×3 (05:43→22:13)
[2023-04-30 07:21] LABS: Basophils Absolute Auto 0.1 K/mm3 (0.0-0.1); Basophils Percent Auto 0.7 % (0.2-1.2); Eosinophils Absolute Auto 0.3 K/mm3 (0-0.3); Eosinophils Percent Auto 2.5 % (0-4.4); Hematocrit 45.1 % (42.0-52.0); Hemoglobin 14.9 g/dL (14.0-18.0); Immature Granulocyte Percent A 0.9 % (0-0.5); Lymphocytes Absolute Auto 2.01 K/mm3 (0.9-3.2); Lymphocytes Percent Auto 17.6 % (18.3-44.2); Mean Corpuscular Hemoglobin 33.3 pg (26-34); Mean Corpuscular Volume 100.9 fl (80-100); Mean Platelet Volume 10.1 fl (7.4-10.4); Monocytes Percent Auto 9.1 % (2.6-8.5); Neutrophils Absolute Auto 7.9 K/mm3 (1.3-6.7); Neutrophils Percent Auto 69.2 % (45.5-73.1); Platelet Count Result 296 k/mm3 (150-375); Red Blood Count 4.47 M/mm3 (4.6-6.20); Red Cell Distribution Width 13.2 % (11.5-14.5); White Blood Count 11.4 K/mm3 (4.5-10.0)
[2023-04-30 07:35] LABS: Anion Gap 8 mmol/L (8-16); Blood Urea Nitrogen 6 mg/dL (9-20); Calcium 8.9 mg/dL (8.4-10.2); Carbon Dioxide 24 mmol/L (22-30); Chloride 105 mmol/L (98-107); Estimated CRCL calculation 98 ml/min; Estimated Glomerular Filt Rate > 60; Glucose 179 mg/dL (65-110); Potassium 3.4 mmol/L (3.4-5.0); Sodium 137 mmol/L (137-145)
[2023-04-30 07:46] LABS: Glucose Point of Care 203 mg/dl (65-105)
[2023-04-30] MEDS: amLODIPine BESYLATE 5 MG TABLET PO (08:19)
[2023-04-30 08:20] VITALS: O2SAT 96
[2023-04-30] MEDS: INSULIN ASPART (*BKC) 100 UNITS/ML SUB-Q (08:26)
--- NOTE | 2023-04-30 11:45 | PM.IMPN ---
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 Lua, see post op note for extensive details of debriding vanc/zosyn/clindamycin added WbC count improving Wound culture not obtained will get this sample # type 2 diabetes mellitus: 04/29: A1c 6.9. on ISS. on metformin 500 mg bid at home. May need more, as his a1c is 6.9. Stop Farxiga at discharge # pre-HTN/HTN Started on amlodipine # heavy intermittent etoh use f/u for signs of withdrawal. pt has never had any in the past. binge drinker # tobacco abuse: smoking cessation discussed with admitting personal trainer # DVT prophylaxis: Lovenox Subjective Date/time seen: 04/30/23 11:45 Interval history: Ambulating in the hallways. Left groin dressing changes being done. Remains afebrile. Complains of pain in the area. Review of Systems Review of Systems: All systems reviewed & are unremarkable except as noted in HPI and below Exam Narrative: General appearance: Well-developed, well-nourished Skin: Normal color Head: Normocephalic, nontraumatic Eyes: Clear conjunctiva ENT: Oropharynx normal, ears normal, nose normal Neck: Supple, nontender Chest and respiratory: Airway patent, no respiratory distress, no accessory muscle use Heart: Regular rate/rhythm Abdomen: Soft, nontender, no organomegaly, quiet bowel sounds left groin area showing diffuse erythema, thickening of the skin, and opened abscess roughly 7 cm x 5 cm containing purulent discharge with offensive odor Vascular: Normal peripheral pulses, normal capillary refill. 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, no gross motor deficit Objective Data Vital Signs Vital Signs: Vital Signs - 24 hr 04/29/23 15:51 04/29/23 18:47 04/29/23 20:45 Temperature 97.1 F L 96.4 F L Pulse Rate 79 94 Respiratory Rate 16 18 Blood Pressure 162/85 H 161/77 H Pulse Oximetry 98 98 98 Oxygen Delivery Room Air 04/30/23 05:00 04/30/23 08:20 Temperature 97 F L Pulse Rate 87 Respiratory Rate 16 Blood Pressure 150/82 H Pulse Oximetry 99 96 Oxygen Delivery Room Air Intake/Output Intake/Output: Intake & Output 04/27/23 04/28/23 04/29/23 04/30/23 23:59 23:59 23:59 23:59 Intake Total 1600 2686 2768 700 Output Total 600 Balance 1600 2686 2168 700 Meds/Results Medications: Active Medications Generic Name Dose Route Start Last Admin Trade Name Freq PRN Reason Stop Dose Admin Acetaminophen 650 mg 04/27/23 18:52 Acetaminophen 325 Mg Tablet PO Q4H PRN Mild Pain (1-3) or Fever Hydrocodone Bitart/Acetaminophen 1 tab 04/27/23 23:56 04/28/23 17:38 Hydrocodone/Acetaminophen (*Crx) 5-325 Mg Tablet PO 1 tab Q6H PRN Administration Pain Rated 4-6 Amlodipine Besylate 5 mg 04/29/23 17:05 04/30/23 08:19 Amlodipine Besylate 5 Mg Tablet PO 5 mg QAM ANDREWS Administration Dextrose 12.5 gm 04/27/23 21:36 Dextrose 50% 25 Gm/50 Ml Syringe IV PUSH PRN PRN Hypoglycemia Protocol Glucagon 1 mg 04/27/23 21:36 Glucagon For Inj 1 Mg Vial IM PRN PRN Hypoglycemia Protocol Glucose 15 gm 04/27/23 21:36 Glucose Oral Gel 15 Gm Of Glucse In 37.5 Gm Tube PO PRN PRN Hypoglycemia Protocol Hydromorphone HCl 0.5 mg 04/29/23 12:40 04/30/23 10:40 Hydromorphone Hcl Inj (*Crx) 1 Mg/Ml Syr IV PUSH 0.5 mg Q2H PRN Administration P
[2023-04-30 11:49] LABS: Glucose Point of Care 131 mg/dl (65-105)
[2023-04-30 14:00] VITALS: BP 130/78; PULSE 86; RESP 12; TEMP 36.7; O2SAT 99
[2023-04-30] MEDS: cefTRIAXone 2 GM/NS 100 ML 2 GM/100 ML BAG IVPB (14:28)
[2023-04-30 16:32] LABS: Glucose Point of Care 144 mg/dl (65-105)
[2023-04-30 17:26] LABS: Vancomycin Trough 17.8 ug/mL (10.0-20.0)
--- NOTE | 2023-04-30 17:52 | PM.PNGS ---
Progress Note: A&P Assessment and Plan (1) Abscess of left groin: Code(s): L02.214 - Cutaneous abscess of groin Status: Acute Assessment and Plan: cont local wound care and abx, home soon c HH Subjective Subjective Date/Time Seen: 04/30/23 17:52 Interval history: no acute issues, reports less groin pain Review of Systems Review of Systems: All systems reviewed & are unremarkable except as noted in HPI and below Exam Skin: Other: L groin - wound C/D/I, some mild drainage, decreased pain, induration Objective Data Vital Signs Vital Signs: Vital Signs - 24 hr 04/29/23 18:47 04/29/23 20:45 04/30/23 05:00 Temperature 36.2 C L 35.8 C L 36.1 C L Pulse Rate 79 94 87 Respiratory Rate 16 18 16 Blood Pressure 162/85 H 161/77 H 150/82 H Pulse Oximetry 98 98 99 Oxygen Delivery 04/30/23 08:20 04/30/23 14:00 Temperature 36.7 C Pulse Rate 86 Respiratory Rate 12 Blood Pressure 130/78 Pulse Oximetry 96 99 Oxygen Delivery Room Air Intake/Output Intake/Output: Intake & Output 04/27/23 04/28/23 04/29/23 04/30/23 23:59 23:59 23:59 23:59 Intake Total 1600 2686 2768 1590 Output Total 600 Balance 1600 2686 2168 1590 Meds/Results Medications: Active Medications Generic Name Dose Route Start Last Admin Trade Name Freq PRN Reason Stop Dose Admin Acetaminophen 650 mg 04/27/23 18:52 Acetaminophen 325 Mg Tablet PO Q4H PRN Mild Pain (1-3) or Fever Hydrocodone Bitart/Acetaminophen 1 tab 04/27/23 23:56 04/28/23 17:38 Hydrocodone/Acetaminophen (*Crx) 5-325 Mg Tablet PO 1 tab Q6H PRN Administration Pain Rated 4-6 Amlodipine Besylate 5 mg 04/29/23 17:05 04/30/23 08:19 Amlodipine Besylate 5 Mg Tablet PO 5 mg QAM ANDREWS Administration Dextrose 12.5 gm 04/27/23 21:36 Dextrose 50% 25 Gm/50 Ml Syringe IV PUSH PRN PRN Hypoglycemia Protocol Enoxaparin Sodium 40 mg 05/01/23 09:00 Enoxaparin 40 Mg/0.4 Ml Syringe SUB-Q DAILY ANDREWS Glucagon 1 mg 04/27/23 21:36 Glucagon For Inj 1 Mg Vial IM PRN PRN Hypoglycemia Protocol Glucose 15 gm 04/27/23 21:36 Glucose Oral Gel 15 Gm Of Glucse In 37.5 Gm Tube PO PRN PRN Hypoglycemia Protocol Hydromorphone HCl 0.5 mg 04/29/23 12:40 04/30/23 17:21 Hydromorphone Hcl Inj (*Crx) 1 Mg/Ml Syr IV PUSH 0.5 mg Q2H PRN Administration Pain Rated 7-10 Dextrose 1,000 mls @ 100 mls/hr 04/27/23 21:36 Dextrose 5% 1,000 Ml IVPB PRN PRN Hypoglycemia Protocol Clindamycin Phosphate 600 mg in 50 mls @ 100 mls/hr 04/29/23 06:00 04/30/23 15:44 Clindamycin 600 Mg/D5w 50 Ml IVPB 04/30/23 23:59 Infused Q8H ANDREWS Infusion Vancomycin HCl 1,750 mg in 500 mls @ 250 mls/hr 04/29/23 06:00 04/30/23 17:50 Vancomycin 1,750 Mg/D5w 500 Ml IVPB 250 mls/hr Q12H ANDREWS Administration Ceftriaxone Sodium 2 gm in 100 mls @ 200 mls/hr 04/30/23 14:15 04/30/23 14:48 Rocephin 2 Gm/Ns 100 Ml IVPB Infused DAILY@1400 ANDREWS Infusion Insulin Aspart 2 - 5 units 04/28/23 08:00 04/30/23 16:51 Insulin Aspart (*Bkc) 100 Units/Ml SUB-Q Not Given TIDWM [facility] Protocol Insulin Aspart 1 - 2 units 04/28/23 21:00 04/29/23 21:25 Insulin Aspart (*Bkc) 100 Units/Ml SUB-Q Not Given HS [facility] Protocol Metronidazole 500 mg 04/30/23 22:00 Metronidazole 250 Mg Tablet PO Q8HR ANDREWS Ondansetron HCl 4 mg 04/27/23 18:52 Ondansetron Inj 4 Mg/2 Ml Vial IV PUSH Q4H PRN Nausea Radiology Results: ITS Impressions Pelvis CT 04/27/23 15:47 IMPRESSION: 1. Abnormal left inguinal skin thickening extending to the inguinal crease with associated skin irregularity and gas, compatible with cellulitis, possibly necrotizing. No discrete drainable abscess identified. Labs Labs: Laboratory Results - last 24 hr 04/29/23 04/30/23 04/30/23 20:48 07:00 07:39 WBC 11.4 H RBC 4.47
[2023-04-30] MEDS: metroNIDAZOLE 250 MG TABLET 500 MG PO (20:07)
[2023-04-30 20:35] LABS: Glucose Point of Care 186 mg/dl (65-105)
[2023-04-30] MEDS: HYDROcodone/acetaminophen (*CRX) 5-325 MG TABLET 1 TAB PO (22:10)
[2023-04-30 22:37] VITALS: BP 151/74; PULSE 82; RESP 20; TEMP 36.1; O2SAT 98
[2023-05-01 05:00] VITALS: BP 136/91; PULSE 77; RESP 16; TEMP 35.7; O2SAT 100
[2023-05-01] MEDS: metroNIDAZOLE 250 MG TABLET 500 MG PO ×3 (05:22→21:03)
[2023-05-01] MEDS: HYDROcodone/acetaminophen (*CRX) 5-325 MG TABLET 1 TAB PO ×3 (05:22→17:57)
[2023-05-01 05:49] LABS: Basophils Absolute Auto 0.1 K/mm3 (0.0-0.1); Basophils Percent Auto 0.7 % (0.2-1.2); Eosinophils Absolute Auto 0.3 K/mm3 (0-0.3); Eosinophils Percent Auto 2.3 % (0-4.4); Hematocrit 45.2 % (42.0-52.0); Hemoglobin 15.2 g/dL (14.0-18.0); Immature Granulocyte Percent A 0.9 % (0-0.5); Lymphocytes Absolute Auto 1.73 K/mm3 (0.9-3.2); Lymphocytes Percent Auto 16.1 % (18.3-44.2); Mean Corpuscular HGB Conc 33.6 g/dl (32-36); Mean Corpuscular Hemoglobin 33.4 pg (26-34); Mean Corpuscular Volume 99.3 fl (80-100); Mean Platelet Volume 10.4 fl (7.4-10.4); Monocytes Percent Auto 9.4 % (2.6-8.5); Neutrophils Absolute Auto 7.6 K/mm3 (1.3-6.7); Neutrophils Percent Auto 70.6 % (45.5-73.1); Platelet Count Result 308 k/mm3 (150-375); Red Blood Count 4.55 M/mm3 (4.6-6.20); White Blood Count 10.8 K/mm3 (4.5-10.0)
[2023-05-01 05:59] LABS: Alanine Aminotransferase 20 U/L (6-50); Albumin Level 3.5 g/dL (3.5-5.1); Alkaline Phosphatase 75 U/L (38-126); Anion Gap 9 mmol/L (8-16); Aspartate Amino Transferase 24 U/L (17-59); Bilirubin,Total 0.4 mg/dL (0.2-1.3); Blood Urea Nitrogen 14 mg/dL (9-20); Calcium 9.1 mg/dL (8.4-10.2); Carbon Dioxide 23 mmol/L (22-30); Chloride 106 mmol/L (98-107); Estimated CRCL calculation 51 ml/min; Estimated Glomerular Filt Rate 45; Glucose 148 mg/dL (65-110); Magnesium 2.3 mg/dL (1.6-2.3); Potassium 3.3 mmol/L (3.4-5.0); Sodium 138 mmol/L (137-145)
[2023-05-01 07:39] LABS: Glucose Point of Care 171 mg/dl (65-105)
--- NOTE | 2023-05-01 08:46 | PM.IMPN ---
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 Lua, see post op note for extensive details of debriding vanc/zosyn/clindamycin added WbC count improving Wound culture not obtained which was obtained yesterday. No organism but many WBCs seen. Await identification if any. Clindamycin discontinued Zosyn switched to ceftriaxone Vancomycin dosing readjustment due to elevated creatinine today. # FREDDIE fraction related versus antibiotics related. Vancomycin dosing carefully discussed with pharmacist Continue to monitor creatinine # type 2 diabetes mellitus: 04/29: A1c 6.9. on ISS. on metformin 500 mg bid at home. May need more, as his a1c is 6.9. Stop Farxiga at discharge # pre-HTN/HTN Started on amlodipine # heavy intermittent etoh use f/u for signs of withdrawal. pt has never had any in the past. binge drinker # tobacco abuse: smoking cessation discussed with admitting recruitment coordinator # DVT prophylaxis: Lovenox Subjective Date/time seen: 05/01/23 08:46 Interval history: No overnight events. Discussed with the Pharmacy for vancomycin dosing. Dressing changes ongoing Review of Systems Review of Systems: All systems reviewed & are unremarkable except as noted in HPI and below Exam Narrative: General appearance: Well-developed, well-nourished Skin: Normal color Head: Normocephalic, nontraumatic Eyes: Clear conjunctiva ENT: Oropharynx normal, ears normal, nose normal Neck: Supple, nontender Chest and respiratory: Airway patent, no respiratory distress, no accessory muscle use Heart: Regular rate/rhythm Abdomen: Soft, nontender, no organomegaly, quiet bowel sounds left groin area showing diffuse erythema, thickening of the skin, and opened abscess roughly 7 cm x 5 cm containing purulent discharge with offensive odor Vascular: Normal peripheral pulses, normal capillary refill. 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 deficit Objective Data Vital Signs Vital Signs: Vital Signs - 24 hr 04/30/23 14:00 04/30/23 20:00 04/30/23 22:37 Temperature 98.0 F 97 F L Pulse Rate 86 82 Respiratory Rate 12 20 Blood Pressure 130/78 151/74 H Pulse Oximetry 99 98 Oxygen Delivery Room Air 05/01/23 05:00 Temperature 96.3 F L Pulse Rate 77 Respiratory Rate 16 Blood Pressure 136/91 H Pulse Oximetry 100 Oxygen Delivery Intake/Output Intake/Output: Intake & Output 04/28/23 04/29/23 04/30/23 05/01/23 23:59 23:59 23:59 23:59 Intake Total 2686 2768 4090 1800 Output Total 600 Balance 2686 2168 4090 1800 Meds/Results Medications: Active Medications Generic Name Dose Route Start Last Admin Trade Name Freq PRN Reason Stop Dose Admin Acetaminophen 650 mg 04/27/23 18:52 Acetaminophen 325 Mg Tablet PO Q4H PRN Mild Pain (1-3) or Fever Hydrocodone Bitart/Acetaminophen 1 tab 04/27/23 23:56 05/01/23 05:22 Hydrocodone/Acetaminophen (*Crx) 5-325 Mg Tablet PO 1 tab Q6H PRN Administration Pain Rated 4-6 Amlodipine Besylate 5 mg 04/29/23 17:05 04/30/23 08:19 Amlodipine Besylate 5 Mg Tablet PO 5 mg QAM ANDREWS Administration Dextrose 12.5 gm 04/27/23 21:36 Dextrose 50% 25 Gm/50 Ml Syringe IV PUSH PRN PRN Hypoglycemia Protocol Enoxaparin Sodium 40 mg 05/01/23 09:00 Enoxaparin 40 Mg/0.4 Ml Syringe SUB-Q DAILY ANDREWS Glucagon 1 mg
[2023-05-01] MEDS: ACETAMINOPHEN 325 MG TABLET 650 MG PO (10:04)
[2023-05-01] MEDS: amLODIPine BESYLATE 5 MG TABLET PO (10:05)
[2023-05-01] MEDS: ENOXAPARIN 40 MG/0.4 ML SYRINGE SUB-Q (10:05)
[2023-05-01] MEDS: POTASSIUM CHLORIDE 20 MEQ ER TABLET PO (10:05)
[2023-05-01 11:29] LABS: Glucose Point of Care 164 mg/dl (65-105)
[2023-05-01] MEDS: HYDROmorphone HCL INJ (*CRX) 1 MG/ML SYR 0.5 MG IV PUSH ×4 (13:08→21:10)
[2023-05-01] MEDS: cefTRIAXone 2 GM/NS 100 ML 2 GM/100 ML BAG IVPB (13:16)
[2023-05-01 16:39] LABS: Glucose Point of Care 116 mg/dl (65-105)
[2023-05-01 17:28] LABS: Vancomycin Trough 28.9 ug/mL (10.0-20.0)
[2023-05-01] MEDS: INSULIN ASPART (*BKC) 100 UNITS/ML SUB-Q (21:03)
[2023-05-01 23:17] LABS: Glucose Point of Care 211 mg/dl (65-105)
[2023-05-01 23:50] VITALS: BP 144/74; PULSE 80; RESP 20; TEMP 36.6; O2SAT 100
[2023-05-02] MEDS: HYDROmorphone HCL INJ (*CRX) 1 MG/ML SYR 0.5 MG IV PUSH ×4 (01:02→21:16)
--- NOTE | 2023-05-02 01:14 | PC.NURSE ---
Daylight Savings Time For Daylight Savings Time Ending in the Fall - Clocks are moved back. For Daylight Savings Time Beginning in the Spring - Clocks are moved ahead. For [facility], the time of change occurs at 0200 hrs. Time is taken from the beverage server. This entry on the patient's chart recognizes the change in time reflected during documentation. Example: 2 entries for vital signs may be charted for 0200 hrs.
[2023-05-02] MEDS: HYDROcodone/acetaminophen (*CRX) 5-325 MG TABLET 1 TAB PO (05:29)
[2023-05-02] MEDS: metroNIDAZOLE 250 MG TABLET 500 MG PO ×3 (05:30→21:17)
[2023-05-02 06:22] VITALS: BP 145/81; PULSE 64; RESP 20; TEMP 36.6; O2SAT 100
[2023-05-02 06:48] LABS: Basophils Absolute Auto 0.1 K/mm3 (0.0-0.1); Basophils Percent Auto 0.6 % (0.2-1.2); Eosinophils Absolute Auto 0.3 K/mm3 (0-0.3); Eosinophils Percent Auto 2.5 % (0-4.4); Hematocrit 47.5 % (42.0-52.0); Hemoglobin 15.7 g/dL (14.0-18.0); Immature Granulocyte Percent A 0.9 % (0-0.5); Lymphocytes Percent Auto 16.4 % (18.3-44.2); Mean Corpuscular HGB Conc 33.1 g/dl (32-36); Mean Corpuscular Hemoglobin 32.9 pg (26-34); Mean Corpuscular Volume 99.6 fl (80-100); Mean Platelet Volume 10.5 fl (7.4-10.4); Monocytes Absolute Auto 0.9 K/mm3 (0.1-0.6); Monocytes Percent Auto 8.2 % (2.6-8.5); Neutrophils Absolute Auto 7.8 K/mm3 (1.3-6.7); Neutrophils Percent Auto 71.4 % (45.5-73.1); Platelet Count Result 318 k/mm3 (150-375); Red Blood Count 4.77 M/mm3 (4.6-6.20); Red Cell Distribution Width 13.2 % (11.5-14.5)
[2023-05-02 07:04] LABS: Alanine Aminotransferase 21 U/L (6-50); Albumin Level 3.9 g/dL (3.5-5.1); Alkaline Phosphatase 86 U/L (38-126); Anion Gap 10 mmol/L (8-16); Aspartate Amino Transferase 27 U/L (17-59); Bilirubin,Total 0.5 mg/dL (0.2-1.3); Blood Urea Nitrogen 14 mg/dL (9-20); Calcium 9.3 mg/dL (8.4-10.2); Carbon Dioxide 22 mmol/L (22-30); Chloride 105 mmol/L (98-107); Estimated CRCL calculation 58 ml/min; Estimated Glomerular Filt Rate 53; Glucose 148 mg/dL (65-110); Magnesium 2.5 mg/dL (1.6-2.3); Potassium 3.6 mmol/L (3.4-5.0); Sodium 137 mmol/L (137-145)
[2023-05-02 08:10] LABS: Glucose Point of Care 144 mg/dl (65-105)
[2023-05-02] MEDS: ENOXAPARIN 40 MG/0.4 ML SYRINGE SUB-Q (09:08)
[2023-05-02] MEDS: amLODIPine BESYLATE 5 MG TABLET PO (09:11)
--- NOTE | 2023-05-02 11:09 | PM.IMPN ---
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 Lua, see post op note for extensive details of debriding vanc/zosyn/clindamycin added WbC count improving Wound culture not obtained which was obtained yesterday. No organism but many WBCs seen. Await identification if any. Clindamycin discontinued Zosyn switched to ceftriaxone Vancomycin dosing held as vancomycin level is high and also had mild FREDDIE Continue dressing changes Pain control with [place] will increase dose to 03/30/2025 # FREDDIE fraction related versus antibiotics related. Vancomycin dosing carefully discussed with pharmacist Continue to monitor creatinine FREDDIE stabilized today # type 2 diabetes mellitus: 04/29: A1c 6.9. on ISS. on metformin 500 mg bid at home. May need more, as his a1c is 6.9. Stop Farxiga at discharge # pre-HTN/HTN Started on amlodipine # heavy intermittent etoh use f/u for signs of withdrawal. pt has never had any in the past. binge drinker # tobacco abuse: smoking cessation discussed with admitting patient access representative # DVT prophylaxis: Lovenox Subjective Date/time seen: 05/02/23 11:09 Interval history: No overnight events. Wound packing was changed yesterday. Continued on dressing changes. Vanc level was high creatinine has stabilized today. WBC count still mildly elevated remains on ceftriaxone and vancomycin vancomycin is currently on hold with recheck levels planned this evening Review of Systems Review of Systems: All systems reviewed & are unremarkable except as noted in HPI and below Exam Narrative: General appearance: Well-developed, well-nourished Skin: Normal color Head: Normocephalic, nontraumatic Eyes: Clear conjunctiva ENT: Oropharynx normal, ears normal, nose normal Neck: Supple, nontender Chest and respiratory: Airway patent, no respiratory distress, no accessory muscle use Heart: Regular rate/rhythm Abdomen: Soft, nontender, no organomegaly, quiet bowel sounds left groin area showing diffuse erythema, thickening of the skin, and opened abscess roughly 7 cm x 5 cm containing purulent discharge with offensive odor Vascular: Normal peripheral pulses, normal capillary refill. 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, no gross motor deficit Objective Data Vital Signs Vital Signs: Vital Signs - 24 hr 05/01/23 20:00 05/01/23 23:50 05/02/23 06:22 Temperature 98 F 97.9 F Pulse Rate 80 64 Respiratory Rate 20 20 Blood Pressure 144/74 H 145/81 H Pulse Oximetry 100 100 Oxygen Delivery Room Air Intake/Output Intake/Output: Intake & Output 04/29/23 04/30/23 05/01/23 05/02/23 23:59 23:59 23:59 22:59 Intake Total 2768 4090 5498 1340 Output Total 600 Balance 2168 4090 5498 1340 Meds/Results Medications: Active Medications Generic Name Dose Route Start Last Admin Trade Name Freq PRN Reason Stop Dose Admin Acetaminophen 650 mg 04/27/23 18:52 05/01/23 10:04 Acetaminophen 325 Mg Tablet PO 650 mg Q4H PRN Administration Mild Pain (1-3) or Fever Hydrocodone Bitart/Acetaminophen 1 tab 04/27/23 23:56 05/02/23 05:29 Hydrocodone/Acetaminophen (*Crx) 5-325 Mg Tablet PO 1 tab Q6H PRN Administration Pain Rated 4-6 Amlodipine Besylate 5 mg 04/29/23 17:05 05/02/23 09:11 Amlodipine Besylate 5 Mg Tablet PO 5 mg QAM ANDREWS Administration Dextrose 12.5 gm 04/27/23 21:36 Dextr
[2023-05-02 11:48] LABS: Glucose Point of Care 146 mg/dl (65-105)
[2023-05-02] MEDS: HYDROcodone/acetaminophen (*CRX) 10-325 MG TABLET 1 TAB PO ×3 (12:02→23:21)
[2023-05-02 15:12] VITALS: BP 159/80; PULSE 87; RESP 18; TEMP 36.6; O2SAT 98
[2023-05-02 16:00] VITALS: BP 159/80
[2023-05-02] MEDS: cefTRIAXone 2 GM/NS 100 ML 2 GM/100 ML BAG IVPB (16:13)
[2023-05-02 16:47] LABS: Glucose Point of Care 155 mg/dl (65-105)
[2023-05-02 17:34] LABS: Vancomycin Trough 14.8 ug/mL (10.0-20.0)
[2023-05-02 20:00] VITALS: BP 158/83; PULSE 80; RESP 16; O2SAT 99
[2023-05-02 20:34] LABS: Glucose Point of Care 230 mg/dl (65-105)
[2023-05-02 20:46] VITALS: BP 158/83; PULSE 80; RESP 16; TEMP 36.4; O2SAT 99
[2023-05-02] MEDS: INSULIN ASPART (*BKC) 100 UNITS/ML SUB-Q (21:17)
[2023-05-03] MEDS: HYDROmorphone HCL INJ (*CRX) 1 MG/ML SYR 0.5 MG IV PUSH ×4 (00:46→14:09)
[2023-05-03] MEDS: HYDROcodone/acetaminophen (*CRX) 10-325 MG TABLET 1 TAB PO ×3 (03:13→15:21)
[2023-05-03 04:00] VITALS: BP 158/83
[2023-05-03] MEDS: metroNIDAZOLE 250 MG TABLET 500 MG PO ×2 (05:44→13:29)
[2023-05-03 05:47] VITALS: BP 162/85; PULSE 74; RESP 16; TEMP 36.6; O2SAT 100
[2023-05-03 07:00] LABS: Basophils Absolute Auto 0.1 K/mm3 (0.0-0.1); Basophils Percent Auto 0.6 % (0.2-1.2); Eosinophils Absolute Auto 0.3 K/mm3 (0-0.3); Eosinophils Percent Auto 2.3 % (0-4.4); Hematocrit 46.2 % (42.0-52.0); Hemoglobin 15.1 g/dL (14.0-18.0); Immature Granulocyte Absolute 0.09 K/mm3 (0.00-0.031); Immature Granulocyte Percent A 0.8 % (0-0.5); Lymphocytes Absolute Auto 1.67 K/mm3 (0.9-3.2); Lymphocytes Percent Auto 14.8 % (18.3-44.2); Mean Corpuscular HGB Conc 32.7 g/dl (32-36); Mean Corpuscular Hemoglobin 32.7 pg (26-34); Mean Platelet Volume 10.7 fl (7.4-10.4); Monocytes Absolute Auto 1.1 K/mm3 (0.1-0.6); Monocytes Percent Auto 9.9 % (2.6-8.5); Neutrophils Absolute Auto 8.1 K/mm3 (1.3-6.7); Neutrophils Percent Auto 71.6 % (45.5-73.1); Platelet Count Result 300 k/mm3 (150-375); Red Blood Count 4.62 M/mm3 (4.6-6.20); Red Cell Distribution Width 13.2 % (11.5-14.5); White Blood Count 11.3 K/mm3 (4.5-10.0)
[2023-05-03 07:16] LABS: Alanine Aminotransferase 19 U/L (6-50); Albumin Level 3.6 g/dL (3.5-5.1); Alkaline Phosphatase 75 U/L (38-126); Anion Gap 7 mmol/L (8-16); Aspartate Amino Transferase 20 U/L (17-59); Bilirubin,Total 0.4 mg/dL (0.2-1.3); Blood Urea Nitrogen 14 mg/dL (9-20); Calcium 9.1 mg/dL (8.4-10.2); Carbon Dioxide 24 mmol/L (22-30); Chloride 107 mmol/L (98-107); Estimated CRCL calculation 54 ml/min; Estimated Glomerular Filt Rate 49; Glucose 148 mg/dL (65-110); Magnesium 2.4 mg/dL (1.6-2.3); Potassium 3.6 mmol/L (3.4-5.0); Sodium 138 mmol/L (137-145)
[2023-05-03 07:57] LABS: Glucose Point of Care 149 mg/dl (65-105)
[2023-05-03 08:31] VITALS: RESP 16; O2SAT 100
[2023-05-03] MEDS: amLODIPine BESYLATE 5 MG TABLET PO (08:31)
[2023-05-03] MEDS: ENOXAPARIN 40 MG/0.4 ML SYRINGE SUB-Q (08:31)
[2023-05-03 11:34] LABS: Glucose Point of Care 126 mg/dl (65-105)
[2023-05-03] MEDS: cefTRIAXone 2 GM/NS 100 ML 2 GM/100 ML BAG IVPB (13:29)
--- NOTE | 2023-05-03 13:39 | PM.IMPN ---
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 Lua, see post op note for extensive details of debriding vanc/zosyn/clindamycin added WbC count improving Wound culture not obtained which was obtained yesterday. No organism but many WBCs seen. Await identification if any. Clindamycin discontinued Zosyn switched to ceftriaxone Vancomycin dosing held as vancomycin level is high and also had mild FREDDIE Continue dressing changes Pain control with [place] will increase dose to 03/30/2025 # FREDDIE fraction related versus antibiotics related. Vancomycin dosing carefully discussed with pharmacist Continue to monitor creatinine FREDDIE stabilized today # type 2 diabetes mellitus: 04/29: A1c 6.9. on ISS. on metformin 500 mg bid at home. May need more, as his a1c is 6.9. Stop Farxiga at discharge # pre-HTN/HTN Started on amlodipine # heavy intermittent etoh use f/u for signs of withdrawal. pt has never had any in the past. 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 Review of Systems Review of Systems: All systems reviewed & are unremarkable except as noted in HPI and below Exam Narrative: General appearance: Well-developed, well-nourished Skin: Normal color Head: Normocephalic, nontraumatic Eyes: Clear conjunctiva ENT: Oropharynx normal, ears normal, nose normal Neck: Supple, nontender Chest and respiratory: Airway patent, no respiratory distress, no accessory muscle use Heart: Regular rate/rhythm Abdomen: Soft, nontender, no organomegaly, quiet bowel sounds left groin area with dressing in place Vascular: Normal peripheral pulses, normal capillary refill. 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 as tested, no gross motor deficit Objective Data Vital Signs Vital Signs: Vital Signs - 24 hr 05/02/23 15:12 05/02/23 16:00 05/02/23 20:46 Temperature 97.8 F 97.5 F L Pulse Rate 87 80 Respiratory Rate 18 16 Blood Pressure 159/80 H 159/80 H 158/83 H Pulse Oximetry 98 99 Oxygen Delivery 05/02/23 20:00 05/02/23 20:00 05/03/23 04:00 Temperature Pulse Rate 80 Respiratory Rate 16 Blood Pressure 158/83 H 158/83 H Pulse Oximetry 99 Oxygen Delivery Room Air 05/03/23 05:47 05/03/23 08:31 Temperature 97.9 F Pulse Rate 74 Respiratory Rate 16 16 Blood Pressure 162/85 H Pulse Oximetry 100 100 Oxygen Delivery Room Air Intake/Output Intake/Output: Intake & Output 05/01/23 05/02/23 05/02/23 05/03/23 00:59 00:59 23:59 23:59 Intake Total 1580 Balance 1580 Meds/Results Medications: Active Medications Generic Name Dose Route Start Last Admin Trade Name Freq PRN Reason Stop Dose Admin Acetaminophen 650 mg 04/27/23 18:52 05/01/23 10:04 Acetaminophen 325 Mg Tablet PO 650 mg Q4H PRN Administration Mild Pain (1-3) or Fever Hydrocodone Bitart/Acetaminophen 1 tab 05/02/23 11:11 05/03/23 11:23 Hydrocodone/Acetaminophen (*Crx) 10-325 Mg Tablet PO 1 tab Q4H PRN Administration Pain Rated 7-10 Amlodipine Besylate 5 mg 04/29/23 17:05 05/03/23 08:31 Amlodipine Besylate 5 Mg Tablet PO 5 mg QAM ANDREWS Administration Dextrose 12.5 gm 04/27/23 21:36 Dextrose 50% 25 G
[2023-05-03 14:00] VITALS: BP 137/76; PULSE 87; RESP 12; TEMP 36.2; O2SAT 96
--- NOTE | 2023-05-03 16:14 | PM.PNGS ---
Progress Note: A&P Assessment and Plan (1) Abscess of left groin: Code(s): L02.214 - Cutaneous abscess of groin Status: Acute Assessment and Plan: S/p I&D left groin abscess, adequately drained. Continue local wound care. Okay to discharge home on oral antibiotics with home health for packing. F/u with Dr. Zamora in 2 weeks. Plan I have discussed the patient's case and plan of care with Dr. Zamora. Subjective Subjective Date/Time Seen: 05/03/23 16:14 Patient reports: no new complaints and afebrile Interval history: Patient doing well. No new complaints. Has taken a pain pill prior to my arrival for dressing change and packing. Exam Narrative: Left groin dressing removed, open wound healing well with granulating tissue, tunneling is coming in and there is no purulent drainage. Induration and erythema much improved since last seen. Const: General: comfortable and no acute distress Orientation/consciousness: patient oriented x3 Objective Data Vital Signs Vital Signs: Vital Signs - 24 hr 05/02/23 20:46 05/02/23 20:00 05/02/23 20:00 Temperature 97.5 F L Pulse Rate 80 80 Respiratory Rate 16 16 Blood Pressure 158/83 H 158/83 H Pulse Oximetry 99 99 Oxygen Delivery Room Air 05/03/23 04:00 05/03/23 05:47 05/03/23 08:31 Temperature 97.9 F Pulse Rate 74 Respiratory Rate 16 16 Blood Pressure 158/83 H 162/85 H Pulse Oximetry 100 100 Oxygen Delivery Room Air 05/03/23 14:00 Temperature 97.2 F L Pulse Rate 87 Respiratory Rate 12 Blood Pressure 137/76 Pulse Oximetry 96 Oxygen Delivery Intake/Output Intake/Output: Intake & Output 05/01/23 05/02/23 05/02/23 05/03/23 00:59 00:59 23:59 23:59 Intake Total 1680 Balance 1680 Meds/Results Medications: Active Medications Generic Name Dose Route Start Last Admin Trade Name Freq PRN Reason Stop Dose Admin Acetaminophen 650 mg 04/27/23 18:52 05/01/23 10:04 Acetaminophen 325 Mg Tablet PO 650 mg Q4H PRN Administration Mild Pain (1-3) or Fever Hydrocodone Bitart/Acetaminophen 1 tab 05/02/23 11:11 05/03/23 15:21 Hydrocodone/Acetaminophen (*Crx) 10-325 Mg Tablet PO 1 tab Q4H PRN Administration Pain Rated 7-10 Amlodipine Besylate 5 mg 04/29/23 17:05 05/03/23 08:31 Amlodipine Besylate 5 Mg Tablet PO 5 mg QAM ANDREWS Administration Dextrose 12.5 gm 04/27/23 21:36 Dextrose 50% 25 Gm/50 Ml Syringe IV PUSH PRN PRN Hypoglycemia Protocol Enoxaparin Sodium 40 mg 05/01/23 09:00 05/03/23 08:31 Enoxaparin 40 Mg/0.4 Ml Syringe SUB-Q 40 mg DAILY ANDREWS Administration Glucagon 1 mg 04/27/23 21:36 Glucagon For Inj 1 Mg Vial IM PRN PRN Hypoglycemia Protocol Glucose 15 gm 04/27/23 21:36 Glucose Oral Gel 15 Gm Of Glucse In 37.5 Gm Tube PO PRN PRN Hypoglycemia Protocol Hydromorphone HCl 0.5 mg 04/29/23 12:40 05/03/23 14:09 Hydromorphone Hcl Inj (*Crx) 1 Mg/Ml Syr IV PUSH 0.5 mg Q2H PRN Administration Pain Rated 7-10 Dextrose 1,000 mls @ 100 mls/hr 04/27/23 21:36 Dextrose 5% 1,000 Ml IVPB PRN PRN Hypoglycemia Protocol Ceftriaxone Sodium 2 gm in 100 mls @ 200 mls/hr 04/30/23 14:15 05/03/23 14:00 Rocephin 2 Gm/Ns 100 Ml IVPB Infused DAILY@1400 ANDREWS Infusion Vancomycin HCl 1,750 mg in 500 mls @ 250 mls/hr 05/02/23 20:00 05/03/23 01:18 Vancomycin 1,750 Mg/D5w 500 Ml IVPB Infused Q24H ANDREWS Infusion Insulin Aspart 2 - 5 units 04/28/23 08:00 05/03/23 11:39 Insulin Aspart (*Bkc) 100 Units/Ml SUB-Q Not Given TIDWM [facility] Protocol Insulin Aspart 1 - 2 units 04/28/23 21:00 05/02/23 21:17 Insulin Aspart (*Bkc) 100 Units/Ml SUB-Q 1 units HS ANDREWS Administration Protocol Metronidazole 500 mg 04/30/23 22:00 05/03/23 13:29 Metronidazole 250 Mg Tablet PO 500 mg Q8HR ANDREWS Administration Ondansetron HCl 4 mg 04/27/23 18:52 Ondanset
[2023-05-03 16:17] VITALS: O2SAT 99
--- NOTE | 2023-05-03 16:24 | PM.DS ---
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 Lua, status post I&D done on 04/28/2023 vanc/zosyn/clindamycin added WbC count improving Wound culture not obtained. No organism but many WBCs seen.? Clindamycin discontinued Zosyn switched to ceftriaxone. Vancomycin dosing held as vancomycin level is high and also had mild FREDDIE Continue dressing changes Pain control with [place] will increase dose to 03/30/2025 Will change antibiotic to Augmentin and doxycycline at discharge for 10 more days Continue wound care with home health which was arranged # FREDDIE fraction related versus antibiotics related.? Vancomycin dosing carefully discussed with pharmacist Continue to monitor creatinine FREDDIE stabilized # type 2 diabetes mellitus: 04/29: A1c 6.9. on ISS. on metformin 500 mg bid at home. May need more, as his a1c is 6.9.? Stop Farxiga at discharge # pre-HTN/HTN Started on amlodipine # heavy intermittent etoh use f/u for signs of withdrawal. pt has never had any in the past. binge drinker # tobacco abuse:? 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 Lovenox Time Spent with Patient Time attestation: Total time spent providing and/or coordinating discharge services: 40 minutes Exam Narrative: General appearance: Well-developed, well-nourished Skin: Normal color Head: Normocephalic, nontraumatic Eyes: Clear conjunctiva ENT: Oropharynx normal, ears normal, nose normal Neck: Supple, nontender Chest and respiratory: Airway patent, no respiratory distress, no accessory muscle use Heart: Regular rate/rhythm Abdomen: Soft, nontender, no organomegaly, quiet bowel sounds left groin area with dressing in place Vascular: Normal peripheral pulses, normal capillary refill. 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, no gross motor deficit DS: Data Data Completed and Pending Labs on day of discharge: Labs from last 24 hours 05/03/23 05/03/23 05/03/23 11:31 07:42 06:46 WBC 11.3 H RBC 4.62 Hgb 15.1 Hct 46.2 MCV 100.0 MCH 32.7 MCHC 32.7 RDW 13.2 Plt Count 300 MPV 10.7 H Immature Gran % (Auto) 0.8 H Neut % (Auto) 71.6 Lymph % (Auto) 14.8 L [place] % (Auto) 9.9 H Eos % (Auto) 2.3 Baso % (Auto) 0.6 Lymph # (Auto) 1.67 [place] # (Auto) 1.1 H Eos # (Auto) 0.3 Baso # (Auto) 0.1 Abs Immat Gran (auto) 0.09 H Absolute Neuts (auto) 8.1 H Absolute Nucleated RBC 0.0 Nucleated RBC % 0.0 Sodium 138 Potassium 3.6 Chloride 107 Carbon Dioxide 24 Anion Gap 7 L BUN 14 Creatinine 1.50 H Estim Creat Clear Calc 54 Estimated GFR 49 L Glucose 148 H POC Capillary Glucose 126 H 149 H Calcium 9.1 Magnesium 2.4 H Total Bilirubin 0.4 AST 20 ALT 19 Alkaline Phosphatase 75 Total Protein 7.0 Albumin 3.6 Vancomycin Trough 05/02/23 05/02/23 05/02/23 20:19 17:12 16:32 WBC RBC Hgb Hct MCV MCH MCHC RDW Plt Count MPV Immature Gran % (Auto) Neut % (Auto) Lymph % (Auto) [place] % (Auto) Eos % (Auto) Baso % (Auto) Lymph # (Auto) [place] # (Auto) Eos # (Auto) Baso # (Auto) Abs Immat Gran (auto) Absolute Neuts (a
[2023-05-03 16:45] LABS: Glucose Point of Care 126 mg/dl (65-105)
== END 2023-05-03 17:30 | disposition home health service (06) | DRG 580 ==
LOC: ANHED 17:01 → ANH3MEDSUR 21:03
PROVIDERS: Internal Medicine; Surgery; Admitting Provider Internal Medicine; Emergency Provider Emergency Medicine; PCP Internal Medicine; Visit Provider Internal Medicine
DX: L02.214 Cutaneous abscess of groin (principal); N17.9 Acute kidney failure, unspecified; N49.3 Fournier gangrene; L03.314 Cellulitis of groin; T36.8X5A Adverse effect of other systemic antibiotics, initial encounter; F10.90 Alcohol use, unspecified, uncomplicated; I10 Essential (primary) hypertension; F41.8 Other specified anxiety disorders; E11.42 Type 2 diabetes mellitus with diabetic polyneuropathy; E66.9 Obesity, unspecified; Z68.33 Body mass index [BMI] 33.0-33.9, adult; F17.210 Nicotine dependence, cigarettes, uncomplicated; Z79.84 Long term (current) use of oral hypoglycemic drugs
CPT/HCPCS: 36415; 72193; 80048; 80053; 80202; 82948; 83036; 83605; 83735; 85025; 86140; 87040; 87070; 87205; 93005; 96361; 96365; 96366; 96367; 99285; A9270; J0696; J1170; J1650; J1815; J1885; J2250; J2405; J2543; J2704; J3010; J3370; J7030; J7120; Q9967

== ENCOUNTER 2023-05-10 07:25 | Outpatient (RCR) | payer OTHER, SELFPAY ==
[2023-05-06 09:00] VITALS: BMI 33.0
--- NOTE | 2023-05-13 09:59 | PCWOUND ---
WOCN NOTE Patient did not show up for appointment, left message on his cell.
--- NOTE | 2023-05-18 11:50 | PCWOUND ---
WOCN NOTE Patient called back to say he was told by surgeon he no longer needs wound care. no further appointments made.
== END 2023-05-18 13:09 | disposition home or self-care (01) ==
LOC: ANHWOC 07:25
PROVIDERS: PCP Internal Medicine; Visit Provider Surgery
DX: L02.214 Cutaneous abscess of groin (principal)
CPT/HCPCS: 99213; G0463